=== PATIENT | female | born 1965 | race Caucasian/White ===

== ENCOUNTER 2016-07-30 07:10 | Observation (INO) | payer OTHER ==
[2016-07-30] MEDS ORDERED: ONDANSETRON 4 MG/2 ML VIAL IVP PRN (13:16)
--- NOTE | 2016-07-30 13:25 | CPEKG ---
Heart Rate: 50 RR Interval: 1200 P-R Interval: 124 QRSD Interval: 78 QT Interval: 456 QTC Interval: 416 P [place]: 23 QRS [place]: 49 T Wave [place]: 61 EKG Severity - OTHERWISE NORMAL ECG - EKG Impression: SINUS RHYTHM EKG Impression: LOW VOLTAGE IN FRONTAL LEADS Electronically Signed By: Jake Sanchez 30-Jul-2016 14:24:08
[2016-07-30 14:34] LABS: ANION GAP 9 mEq/L (8-16); CALCIUM 8.5 mg/dL (8.5-10.4); CARBON DIOXIDE 23 mEq/l (22-31); CHLORIDE 110 mEq/L (97-110); CREATININE 0.8 mg/dL (0.6-1.0); GLOMERULAR FILTRATION RATE > 60; GLUCOSE 105 mg/dL (70-100); SODIUM 142 mEq/L (134-144)
--- NOTE | 2016-07-30 16:45 | EPPROC ---
Electrophysiology Procedure Note: ELECTROPHYSIOLOGIC STUDY AND CATHETER MEDIATED ABLATION FOR SUBEUSTACHIAN ISTHMUS DEPENDENT COUNTERCLOCKWISE ATRIAL FLUTTER: INDICATION: Narrow complex tachycardia documented at 150 bpm PROCEDURES PERFORMED: 37562-49 EP evaluation with RA/RV/LA pace/record, with arrhythmia induction 62948-15 EP evaluation with RA/RV pace record, insert/reposition catheter, with arrhythmia induction 99600 SVT ablation 81076 3D mapping Fluoroscopy Catheters & Anesthesia: The patient arrived in the Electrophysiology Laboratory in the fasting state. The right clavicular region, right groin, and left groin area were prepped and draped in the usual sterile manner. Anesthesiologist administered general anesthesia. Appropriate non-invasive blood pressure, pulse oximetry and end- tidal CO2 monitoring was established. L femoral vein was easily accessed but we could not pass wire into the IVC. 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 prior history of DVT. All catheters were placed percutaneously using the modified Seldinger technique , and advanced into position under fluoroscopic guidance. One #7 Venezuelan deflectable octapolar electrode catheter was advanced to the His-bundle position via the right femoral vein (2mm spacing; except the proximal ring which was 25cm from the tip used for unipolar recordings). One #7 Venezuelan deflectable catheter with 10 pairs of electrodes was placed via the right femoral vein into the coronary sinus. One # 7 [place]an Halo catheter was inserted through the right femoral vein and was placed at the tricuspid annulus. Heparin was administered to keep ACT > 220 seconds. Programmed stimulation was performed from the right atrium, coronary sinus ( left atrium) and right ventricle. Parahisian pacing demonstrated all retrograde conduction over the AV node. On arrival to the Electrophysiology Laboratory the patient was in sinus rhythm. Programmed stimulation at baseline and with isoproterenol did not induce any SVT. 1 episode of nonsustained atrial flutter was induced. Given that the patient has symptomatic SVT at 150 bpm documented, and based on prior discussion with patient, we opted to perform ablation for atrial flutter. In preparation for ablation of typical atrial flutter, a high-resolution 3D (3 dimensional) Carto electroanatomical map of the sub-Eustachian isthmus and right atrium was obtained during pacing of the posterolateral coronary sinus. For ablation of typical atrial flutter, one #8.5 Venezuelan SR0 sheath was placed in the right atrium. A #8 Venezuelan deflectable quadrapolar electrode catheter ( 2mm-5mm-2mm spacing) with 3.5 mm irrigated tip electrode and location sensor for the Kyte mapping system was inserted in the long sheath and advanced to the right atrium. 8mm RF catheter was also used. Radiofrequency applications were applied between the tricuspid annulus at 0630 oclock as seen in the NIUEAN view and the inferior vena cava. This achieved conduction block across the isthmus. Following ablation of the atrial flutter, programmed atrial stimulation was performed in the baseline state and during infusion of isoproterenol 2 mcg/min. No atrial arrhythmias were inducible post ablation. Post ablation, a high-resolution electroanatomical map of the sub-Eustachian isthmus was obtained during pacing of the posterolateral coronary sinus. This confirmed conduction block across the sub-Eustachian isthmus. Bidirectional block was also confirmed by pacing. The catheters were removed. Long sheath was changed to short 9Fr sheath. Protamine was administered. The patient was transferred to the cardiovascular holding area in stable condition. Vascular access sheaths were removed in the holding area. There were no apparent complications. Results: A. Spontaneous Intervals: Pre ablation SCL 730 ms AH 55 ms HV 40 ms Post ablation SCL 640 ms AH 65 ms HV 40 ms B. Antegrade AV chong function (decremental pacing) Pre ablation FPERP 340 ms WBB CL 330 ms Post ablation FPERP 340 ms WBB CL 330 ms C. Retrograde AV chong function (decremental pacing) FPERP 450 ms WBB CL 440 ms CONCLUSIONS: 1. Successful catheter mediated ablation of cavotricuspid isthmus achieving bi -directional conduction block across cavotricuspid isthmus. 2. No atrial arrhythmias inducible post ablation. 3. No apparent complications. Patient Problems: Problems Problem Status Onset 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
[2016-07-30] MEDS: ACETAMINOPHEN 325 MG TAB PO PRN (17:45)
[2016-07-30] MEDS ORDERED: NS 1,000 ML IV ONE (21:30)
[2016-07-31 04:29] LABS: % IMMATURE GRANULYOCYTES 0.4 % (0.0-1.1); ABSOLUTE IMMATURE GRANULOCYTES 0.04 10^3/uL (0.00-0.10); ADD DIFF? NO; ADD MORPH? NO; ADD SCAN? NO; ATYPICAL LYMPHOCYTE FLAG 0 (0-99); FRAGMENT RBC FLAG 0 (0-99); HEMATOCRIT 38.5 % (38.0-47.0); LEFT SHIFT FLG 0 (0-99); LIPEMIA HEMOLYSIS FLAG 90 (0-99); MEAN CELL HEMOGLOBIN 29.8 pg (27.9-34.1); MEAN CELL HEMOGLOBIN CONCENTR. 33.8 g/dL (32.4-36.7); MEAN CELL VOLUME 88.3 fL (81.5-99.8); MEAN PLATELET VOLUME 9.6 fL (8.7-11.7); PLATELET CLUMPS FLAG 0 (0-99); PLATELET COUNT 193 10^3/uL (150-400); RED BLOOD CELL COUNT 4.36 10^6/uL (4.18-5.33); RED CELL DISTRIBUTION WIDTH 12.6 % (11.5-15.2)
[2016-07-31 04:38] LABS: INR 1.1 (0.83-1.16); PROTIME(PATIENT) 14.1 SEC (12.0-15.0)
[2016-07-31 04:58] LABS: ANION GAP 8 mEq/L (8-16); CALCIUM 9.1 mg/dL (8.5-10.4); CARBON DIOXIDE 23 mEq/l (22-31); CHLORIDE 109 mEq/L (97-110); CREATININE 0.7 mg/dL (0.6-1.0); GLOMERULAR FILTRATION RATE > 60; GLUCOSE 121 mg/dL (70-100); POTASSIUM 4.6 mEq/L (3.5-5.2); SODIUM 140 mEq/L (134-144)
[2016-07-31 05:00] LABS: CREATINE KINASE-MB FRACTION 1.62 ng/mL (0-3.19); TROPONIN I 0.464 ng/mL (0-0.034)
[2016-07-31] MEDS: ACETAMINOPHEN 325 MG TAB PO PRN (08:45)
--- NOTE | 2016-07-31 08:56 | CPEKG ---
Heart Rate: 56 RR Interval: 1071 P-R Interval: 152 QRSD Interval: 78 QT Interval: 404 QTC Interval: 390 P [place]: 67 QRS [place]: 37 T Wave [place]: 57 EKG Severity - NORMAL ECG - EKG Impression: SINUS RHYTHM Electronically Signed By: Jake Sanchez 31-Jul-2016 09:42:13
[2016-07-31] MEDS ORDERED: ASPIRIN 81 MG CHEWABLE TAB PO SCH (09:00)
[2016-07-31] MEDS ORDERED: APIXABAN 5 MG TAB PO SCH (09:30)
[2016-07-31 11:18] VITALS: BP 99/63; PULSE 48; RESP 15; TEMP 97.8; O2SAT 96
--- NOTE | 2016-07-31 20:52 | GDS ---
[f rep st] DISCHARGE SUMMARY ADMITTING DIAGNOSES: 1. Supraventricular tachycardia. 2. Prior cerebrovascular accident due to embolism of left posterior cerebral artery. BRIEF HISTORY: This is a 51-year-old woman with a history of non-Hodgkin lymphoma that is in remission, history of DVT, CVA, and SVT, noted on LINQ monitor, up to 150 beats per minute. SVT was associated with lightheadedness and palpitations. HOSPITAL COURSE: Dr. Rothman performed EP study and induced, nonsustained atrial flutter. An ablation of the cavotricuspid isthmus achieving bidirectional block was done. There were no other atrial arrhythmias seen. She has done well overnight, without any bleeding from her groin site. She did have an area of redness on her left upper thigh this morning. This did resolve shortly after she stood up. No swelling or pain in her leg. Because of the atrial flutter, although it was nonsustained, and her history of stroke, Dr. Rothman has recommended starting Eliquis, and she was given a prescription for 5 mg p.o. b.i.d. She will stop her Plavix. She has a LINQ monitor, and if no atrial arrhythmias are seen over the next 6 months, we will plan to stop the Eliquis and restart Plavix. She is in agreement with this plan. LAB WORK: WBC 10.69, hemoglobin 13, hematocrit 38.5, platelets 193. Sodium is 140, potassium 4.6, chloride 109, bicarbonate 23, BUN 14, creatinine 0.7, glucose is 121, CK 71, CK MB is 1.62, troponin is 0.464, which is elevated and to be expected post ablation. INR is 1.1. PT is 14.1. Echocardiogram was done. Preliminary report, per Dr. Rothman, demonstrates no effusion, however, the report is not yet dictated. PHYSICAL EXAMINATION: VITAL SIGNS: Blood pressure is 97/56, pulse 86, respirations 18, temperature 36.8, O2 saturation is 97% on room air. GENERAL: She is alert and oriented, sitting up in bed, in no acute distress. CARDIAC: Regular rate and rhythm without murmur, rub or gallop. LUNGS: Clear to auscultation. ABDOMEN: Groin sites without ecchymosis or hematoma. LEGS: Without discoloration. No swelling. Currently, no redness or tenderness. Left DP is by Doppler. Left PT is +2. Right pedal pulses are +2. DISCHARGE INSTRUCTIONS: Activity restrictions were reviewed, including no lifting over 10 pounds for 1 week. No straining. Hold pressure over groin site with coughing or sneezing for the next few days, and no sitting in bathtub or hot tube for the next week. FOLLOWUP: She has a followup with Dr. Rothman on August 28 at 3:30. /[id number]/MODL MTDD
== END 2016-07-31 12:14 | disposition home or self-care (01) ==
LOC: FCATH 07:10 → F2W 13:40
PROVIDERS: ADMIT Internal Medicine Cardiovascular Disease; ATTEND Internal Medicine Cardiovascular Disease
PROC: 5A1213Z Performance of Cardiac Pacing, Intermittent (ICD-10-PCS; principal; 2016-07-30)
PROC: 02583ZZ Destruction of Conduction Mechanism, Percutaneous Approach (ICD-10-PCS; principal; 2016-07-30)
PROC: 4A023FZ Measurement of Cardiac Rhythm, Percutaneous Approach (ICD-10-PCS; principal; 2016-07-30)
DX: I47.1 Supraventricular tachycardia (principal); I48.92 Unspecified atrial flutter; Z86.73 Personal history of transient ischemic attack (TIA), and cerebral infarction without residual deficits; Z86.718 Personal history of other venous thrombosis and embolism; Z85.72 Personal history of non-Hodgkin lymphomas
CPT/HCPCS: 93005; 93306; G0378; J2405

== ENCOUNTER → 2017-02-27 | Outpatient (CLI) | payer OTHER | LOC: BMCIMAGING 09:03 | PROVIDERS: ATTEND Obstetrics & Gynecology | DX: Z12.31 Encounter for screening mammogram for malignant neoplasm of breast (principal) ==

== ENCOUNTER → 2017-12-05 | Outpatient (CLI) | payer OTHER | LOC: FIMAGING 15:48 | PROVIDERS: ATTEND Internal Medicine | DX: M79.652 Pain in left thigh (principal); M25.552 Pain in left hip; Q65.89 Other specified congenital deformities of hip ==

== ENCOUNTER 2018-05-21 05:46 | Observation (INO) | payer OTHER ==
[2018-05-21] MEDS ORDERED: VANCOMYCIN IV ONE (06:00)
[2018-05-21] MEDS ORDERED: ROPI/epINEPH/KETOROLAC/morphINE IU ONE (06:00)
[2018-05-21] MEDS ORDERED: NS IV ONE (06:00)
[2018-05-21] MEDS ORDERED: FAMOTIDINE 20 MG TAB PO ONE (06:03)
[2018-05-21] MEDS ORDERED: ACETAMINOPHEN 325 MG TAB PO ONE (06:03)
[2018-05-21] MEDS ORDERED: LR 1,000 ML IV ONE (06:04)
[2018-05-21] MEDS ORDERED: ROPIVACAINE IU ONE (06:22)
[2018-05-21] MEDS ORDERED: VANCOMYCIN PHARMACY TO DOSE MISC ONE (06:22)
[2018-05-21] MEDS ORDERED: KETOROLAC TROMETHAMINE IU ONE (06:22)
[2018-05-21] MEDS ORDERED: MORPHINE IU ONE (06:22)
--- NOTE | 2018-05-21 06:42 | PDANEPAE ---
ANE Past Medical History - Cardiovascular History Hx Hypertension: No Hx Arrhythmias: Yes Hx Chest Pain: No Hx Coronary Artery / Peripheral Vascular Disease: No Hx CHF / Valvular Disease: No Hx Palpitations: No Cardiovascular History Comment: ABLATION 2015. LOOP RECORDER IN SITU - Pulmonary History Hx COPD: No Hx Asthma/Reactive Airway Disease: No Hx Recent Upper Respiratory Infection: No Hx Oxygen in Use at Home: No Hx Sleep Apnea: No Sleep Apnea Screening Result - Last Documented: Negative - Neurologic History Hx Cerebrovascular Accident: Yes Hx Seizures: No Hx Dementia: No Neurologic History Comment: CVA 2016 R SIDE MILD DEFICIT & MILD SPEECH DEFICIT. PLACED LOOP RECORDER/HAS PLANS. TO BE REMOVED AFTER SURGERY 05/21/18 - Endocrine History Hx Diabetes: No Hypothyroid: No Hyperthyroid: No Obesity: no - Renal History Hx Renal Disorders: No - Liver History Hx Hepatic Disorders: No - Neurological & Psychiatric Hx Hx Neurological and Psychiatric Disorders: No - Cancer History Hx Cancer: Yes Cancer History Comment: NON HODGKINS LYMPHOMA 2014 - Congenital Disorder History Hx Congenital Disorders: No - GI History GERD: no Hx Gastrointestinal Disorders: No - Other Health History Other Health History: LT HIP UNABLE TO USE LEG WALKS WITH A LIMP. LT LEG DVT 2015 - Chronic Pain History Chronic Pain: No - Surgical History Prior Surgeries: KAYLIN SHLDR SCOPE. KAYLIN KNEE SCOPES. LT BIG TOE RECONSTRUCTION. REMVL LYMPH NODE RT GROIN FOR CA. RT HAND ORIF WITH POST HARDWARE REMVL. LT WRIST REMVL CYST/LIGAMENT REPAIR. LT ELBOW ULNAR NERVE ANE Review of Systems Review of Systems: - Exercise capacity Exercise capacity: limited by disability METS (RN): 4 METS ANE Patient History - Allergies Allergies/Adverse Reactions: adhesive tape Allergy (Verified 01/01/16 09:07) Rash latex Allergy (Verified 05/07/18 10:45) RASH/ITCH Penicillins Allergy (Verified 05/07/18 10:45) Anaphylaxis - Home Medications Home Medications: Herbals/Supplements -Info Only 1 ea PO DAILY 07/30/16 [Last Taken 05/20/18 07:00 ] Pradaxa 150 MG (*) DAILY 05/07/18 [Last Taken 05/18/18 19:00] VITAMIN E DAILY 05/07/18 [Last Taken 05/13/18 07:00] Zoloft 100mg (*) DAILY 05/07/18 [Last Taken 05/21/18 0500] - Anes Hx Anes Hx: post operative nausea and vomiting - Smoking Hx Smoking Status: Former smoker - Alcohol Use Alcohol Use: Occasionally - Family Anes Hx Family Anes Hx: neg - N/A ANE Labs/Vital Signs - Vital Signs Height: 175.26 cm Weight: 77.111 kg ANE Physical Exam - Airway Neck exam: FROM Mallampati Score: Class 2 Mouth exam: normal dental/mouth exam - Pulmonary Pulmonary: no respiratory distress, no rales or rhonchi, clear to auscultation - Cardiovascular Cardiovascular: regular rate and rhythym, no murmur, rub, or gallop - ASA Status ASA Status: III ANE Anesthesia Plan Anesthesia Plan: general endotracheal anesthesia Total IV Anesthesia: No
[2018-05-21] MEDS ORDERED: BUPIVACAINE/EPI 0.5% 30 ML SDV ONE (06:47)
--- NOTE | 2018-05-21 06:56 | PDHPUP ---
History & Physical Update H&P update statement: This history and physical update is based on an assessment of the patient which was completed after admission or registration (within 24 hours), but prior to the surgery/procedure. H&P update: H&P reviewed & patient examined, no change in patient's condition since H&P completed
[2018-05-21] MEDS ORDERED: MIDAZOLAM 2 MG/2 ML VIAL IVP ONE (06:59)
[2018-05-21] MEDS ORDERED: PROPOFOL/EMULSION 500 MG/50 ML BOTTLE IV ONE ×2 (07:11→09:51)
[2018-05-21] MEDS ORDERED: fentaNYL 100 MCG/2 ML INJ ONE ×2 (07:11→10:23)
[2018-05-21] MEDS ORDERED: PROPOFOL 200 MG/20 ML VIAL ONE (07:11)
[2018-05-21] MEDS ORDERED: ONDANSETRON 4 MG/2 ML VIAL ONE ×2 (07:17→07:25)
[2018-05-21] MEDS ORDERED: DEXAMETHASONE 4 MG/ML VIAL ONE (07:17)
[2018-05-21] MEDS ORDERED: ROCURONIUM 100 MG/10 ML VIAL ONE (07:17)
[2018-05-21] MEDS ORDERED: LIDOCAINE 2% 2 ML INJ ONE ×2 (07:20→07:27)
[2018-05-21] MEDS ORDERED: MIDAZOLAM 2 MG/2 ML VIAL ONE (07:24)
[2018-05-21] MEDS ORDERED: REMIFENTANIL HCL 1 MG VIAL ONE ×2 (07:43→09:51)
[2018-05-21] MEDS ORDERED: PROMETHAZINE HCL 25 MG/ML INJ IVP PRN (07:53)
[2018-05-21] MEDS ORDERED: LR 500 ML IV PRN (07:53)
[2018-05-21] MEDS ORDERED: HYDROmorphONE/DILAUDID 2 MG/ML INJ IVP PRN (07:53)
[2018-05-21] MEDS ORDERED: oxyCODONE IR 5 MG TAB PO PRN (07:53)
[2018-05-21] MEDS ORDERED: PHENYLEPHRINE HCL 100 MCG/ML SYR IVP PRN (07:53)
[2018-05-21] MEDS ORDERED: NALOXONE HCL 0.4 MG/ML INJ IVP PRN (07:53)
[2018-05-21] MEDS ORDERED: ACETAMINOPHEN 500 MG TAB PO PRN (07:53)
[2018-05-21] MEDS ORDERED: ONDANSETRON 4 MG/2 ML VIAL IVP PRN ×2 (07:53→10:44)
[2018-05-21] MEDS ORDERED: HYDROCODONE/APAP 5/325 TAB PO PRN (07:53)
[2018-05-21] MEDS ORDERED: fentaNYL 100 MCG/2 ML INJ IVP PRN (07:53)
[2018-05-21] MEDS ORDERED: ePHEDrine SULFATE 25 MG/5 ML SYR ONE (07:56)
[2018-05-21] MEDS ORDERED: PHENYLEPHRINE HCL 100 MCG/ML SYR ONE (08:27)
[2018-05-21] MEDS ORDERED: NEOSTIGMINE METHYLSULFATE 5 MG/5 ML SYR ONE (10:18)
[2018-05-21] MEDS ORDERED: GLYCOPYRROLATE 0.2 MG/1 ML VIAL ONE ×4 (10:18→10:20)
[2018-05-21] MEDS ORDERED: HYDROmorphONE/DILAUDID 2 MG/ML INJ ONE (10:43)
[2018-05-21] MEDS ORDERED: MEPERIDINE 25 MG/0.5 ML AMP IVP PRN (10:55)
--- NOTE | 2018-05-21 10:55 | POSTANESTH ---
Post Anesthetic Evaluation Cardiovascular Status: Normal, Stable Respiratory Status: Normal, Stable Level of Consciousness/Mental Status: Can Participate in Eval Pain Control: Adequate, Prn Tx Ordered Nausea/Vomiting Control: Adequate, Prn Tx Ordered Complications Possibly Related to Anesthesia: None Noted
[2018-05-21] MEDS ORDERED: MEPERIDINE 25 MG/0.5 ML AMP ONE (11:09)
[2018-05-21] MEDS: oxyCODONE IR 5 MG TAB PO PRN ×4 (12:39→21:48)
[2018-05-21] MEDS: ACETAMINOPHEN 325 MG TAB PO PRN (12:40)
--- NOTE | 2018-05-21 18:50 | GOP ---
[f rep st] OPERATIVE REPORT DATE OF OPERATION: 05/21/2018 SURGEON: Nathaniel Ureña MD ALIGNER: HIMANSHU CordovaA, LSA. Roller Skater was required for the procedure due to complexity of the case, patient's condition for positioning, prepping, draping, draping, driving the arthroscope, manipulation of instruments and closure. ANESTHESIA: General endotracheal anesthesia. PREOPERATIVE DIAGNOSIS: Left hip labral tear, pincer, cam alpha angle greater than 60 degrees and trochanteric bursitis. POSTOPERATIVE DIAGNOSIS: Left hip labral tear, pincer, cam alpha angle greater than 60 degrees and trochanteric bursitis, but also includes notch osteophyte. PROCEDURE PERFORMED: Left hip arthroscopy with labral repairs and independent procedure not secondary to acetabuloplasty, anterior acetabuloplasty from 1-3 of 2 mm, femoroplasty in the peripheral compartment, capsular repair, trochanteric bursectomy and notchplasty of the cotyloid fossa, and fluoroscopic supervision greater than 1 hour. FINDINGS: Diagnostic arthroscopy reveals Seldes type 1 tear of the labrum extending from 1 to 3 o'clock. The tear was felt to be reparable and treated with repair. She had a grade 1 ALAD Outerbridge 1 lesion comprising 0.5 square cm of cartilage of the acetabulum in the anterior superior zone. The remainder of the cartilage in the weightbearing areas in the femur and acetabulum were intact. There was a pincer morphology anteriorly. Ligamentum teres was graded dome 1 volar 3 with partial degenerative-type tearing. There was also a small osteophyte in the superior most aspect of the cotyloid fossa and mild inflammation within the fossa. In the trochanteric space, there was significant trochanteric bursitis. SPECIMENS: None. ESTIMATED BLOOD LOSS: 30 cc. INDICATIONS: Patient has moderate to severe pain worsened by flexion, joint motion, impingement test for more than 3 months. The patient has had significantly limited activities of daily living such as walking, getting into and out of the car, squatting and picking up an object, putting on shoes and socks. The pain had been unresponsive to more than 3 months of conservative treatment including activity modification, points of symptomatic motions, restriction of athletics, medications, physical therapy. Clinically, the patient has positive impingement sign which was reproduced with the pain. She had no evidence of hip instability radiographically. There was no evidence of arthritis. The hip was grade 2 and 0. She had intact joint space. There was no suspicion of outer bridge grade 3 or 4 cartilage damage. MRI demonstrated a labral tear. The patient was not indicated for hip replacement given the preoperative diagnostic imaging. Diagnostic injection gave temporary relief confirming proceed. The patient was not indicated for total hip replacement given the preoperative diagnostic imaging. Given the failure to improve with conservative measures, the patient elected to proceed with arthroscopic treatment. The patient verbalized understanding of the risks and benefits of the procedure and signed informed consent prior to the procedure. DESCRIPTION OF PROCEDURE: The patient was seen in the holding area, and the operative site was signed. The patient was taken to the operating room and after smooth induction of general anesthesia, she was placed in the supine position on a Maldonado and nephew traction table with well-padded perineal post. Genitalia were protected and the feet were secured. The hip was prepped and draped in the usual sterile fashion. Operative site was confirmed by signature , time-out performed. Allergies reviewed. Antibiotics were administered. Traction was applied to the hip under fluoroscopy. Anterolateral portal was created with an 11 blade. Spinal needle was introduced into the joint under fluoroscopy, and the joint was vented achieving further distention. Spinal needle was withdrawn and reinserted to ensure avoidance of the labrum and the femoral head. Iryv-maz-acwgevwhn technique was used to place a 70-degree arthroscope through the 4.5 mm cannula. The same [id number]-[id number]-lugzngogw technique was used to place a 5 mm cannula through the mid anterior portal. Capsulotomy: Nichole Samurai blade was used to perform a capsular release incising the capsule parallel to the acetabular rim to connect both portals. Further joint mobilization was achieved in this fashion. Diagnostic arthroscopy was then performed. Portals were switched frequently during this and all other parts of the procedure to access all parts of the joint. All parts of the joint were examined and probed including the entire labrum, cartilage in the femur and acetabulum, ligamentum teres and acetabular fossa. The pincer lesion which was probed under fluoroscopy was used to define the extent of the overhang. Acetabuloplasty was then undertaken. Capsule was elevated from the pincer lesion using the ablator RF wand, and a 5.5 mm bur was used to perform the acetabular rim trimming. A maximum of 2 mm was trimmed. This was carried out between 1 and 3 o'clock using fluoroscopic visualization to eliminate any crossover sign fluoroscopically to the pretemplated amount of bone from the impingement part of the rim. Notchplasty: Osteoplasty of the notch osteophyte was performed through the mid anterior portal with a 5.5 mm bur, removing abnormal bone spur up to the border of normal cartilage. Labral repair with stitch technique: The labral repair was then undertaken. Using a loop stitch technique a total of 2 stitches and anchors were placed. Excellent refixation of the labrum was achieved in this fashion. The labral repair was an independent procedure not secondary to the acetabuloplasty and would have been necessary without the labral tear. Femoroplasty: The damaged cartilage overlying the head neck junction was removed with radiofrequency ablation. Femoroplasty was performed using 5.5 mm bur. This was done with extensive fluoroscopic visualization. The hip was moved between 0 and 90 degrees of flexion in between internal and external rotation. The fluoroscope was also used as necessary so that simultaneous arthroscopic and fluoroscopic views were obtained at all times. In this manner , appropriate head and neck offset and spherical contour were created. The femoroplasty surface was then polished using the bur on reverse mode. Dynamic impingement test was performed taking out the hip to 110 degrees of flexion, maximal internal rotation, abduction . No impingement remained. Capsular repair: The capsular repair was undertaken. Disposable cannula was placed in the mid anterior portal, and the Slingshot suture device was used to penetrate the proximal limb of the capsule with #2 Vicryl. Slingshot was then used in the DALA portal and used to penetrate the distal limb of the capsule, retrieving the suture from the proximal aspect. This was then tied on the outside of the capsule with standard arthroscopic knot-tying technique. This was repeated for a total 2 stitches. Excellent plication of the capsule was achieved. Plan was made for the patient to be protected from external rotation or extension for the first 2 weeks surgery to protect the repair. Trochanteric bursectomy/debridement: The blunt obturator was used to reinsert the arthroscope into the peritrochanteric compartment through the mid anterior portal. The shaver was introduced through the anterolateral portal. The trochanteric bursectomy and debridement were performed. The entire trochanteric space was examined including gluteus medius and deacon insertions. The joint was lavaged and sucked dry of all fluid. All instruments were withdrawn from the joint. Portals were closed with 3-0 Monocryl. Steri-Strips and sterile dressings were applied to the hip, and the hip was placed in a brace locked from 0-90 degrees of flexion. The patient was safely awakened, extubated and taken to the recovery room in stable condition. DRAINS: None COMPLICATIONS: None. IMPLANTS: Includes Arthrex 3.0 mm knotless suture tack anchors x2 with #2 FiberWire sutures. TRACTION TIME: Less than 60 minutes. POSTOPERATIVE INSTRUCTIONS: Two weeks of crutches with 20-pound weightbearing on the operative extremity. Brace for postoperative stability to be worn for 2 weeks. Physical therapy to begin as early as the day after surgery following all 4 phases of the protocol. Stationary bike to begin the day after surgery for a total of 8 weeks. All critical portions of procedure were performed by myself, Dr. Ureña. This operative note was created by myself, and I was immediately available for emergency cross-coverage at all times. /[id number]/MODL MTDD
[2018-05-21] MEDS: PANTOPRAZOLE SODIUM 40 MG TAB PO SCH (21:48)
[2018-05-21] MEDS: NAPROXEN SODIUM 220 MG TAB PO SCH (21:48)
[2018-05-22] MEDS: oxyCODONE IR 5 MG TAB PO PRN ×6 (03:30→23:11)
--- NOTE | 2018-05-22 07:40 | SOAPPROG ---
[facility] Progress Note Assessment/Plan: Assessment: 53-year-old female status post left hip arthroscopy with labral repair femoroplasty acetabuloplasty notchplasty capsular repair and trochanteric bursectomy Plan: 20 lb foot flat weight-bearing restriction with crutches and hip abduction brace Physical therapy to begin as soon as 1 day postoperatively Discharge instructions and extensive physical therapy protocol given to patient Begin Pradaxa this morning for DVT prophylaxis given history of DVT and stroke [place] as needed for pain, Naprosyn twice daily for 6 weeks for heterotopic ossification prophylaxis Follow-up in 2 weeks Disposition: Home today after PT 05/22/18 07:37 Subjective: No acute events. Pain slightly increased today compared to yesterday. Denies fevers chills nausea vomiting chest pain shortness of breath numbness or tingling. Objective: Vital Signs Temp Pulse Resp BP Pulse Ox 36.8 C 66 17 89/54 L 96 05/22/18 04:00 05/22/18 04:00 05/22/18 04:00 05/22/18 04:00 05/22/18 04:00 05/21/18 05/22/18 05/23/18 05:59 05:59 05:59 Intake Total 2400 Output Total 650 Balance 1750 Awake alert and oriented Easy nonlabored breathing Left hip: Dressing clean dry intact no erythema drainage or signs of infection Thigh and calf compartments soft and compressible Sensation intact to light touch L3-S1 Motor intact EHL FHL tibialis anterior gastrocsoleus Palpable DP PT pulses - Pending Discharge Pending Discharge Within 24 Hours: Yes Pending Discharge Date: 05/22/18 Pending Discharge Time: 11:00 ICD10 Worksheet Patient Problems: Problems Problem Status Onset Articular cartilage disorder of left hip Acute 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
[2018-05-22] MEDS: NAPROXEN SODIUM 220 MG TAB PO SCH ×2 (08:58→19:45)
[2018-05-22] MEDS: DABIGATRAN ETEXILATE MESYL 150 MG CAP PO SCH ×2 (08:59→19:45)
[2018-05-22] MEDS: PANTOPRAZOLE SODIUM 40 MG TAB PO SCH ×2 (08:59→19:46)
[2018-05-22] MEDS: ATORVASTATIN CALCIUM 40 MG TAB PO SCH (08:59)
[2018-05-22] MEDS ORDERED: ATORVASTATIN CALCIUM 20 MG TAB PO SCH (09:00)
[2018-05-22] MEDS ORDERED: NS 1,000 ML IV ONE ×2 (09:30→12:00)
--- NOTE | 2018-05-22 09:36 | ASMTLACE ---
[facility] Length of stay for Answers: Less than 1 day current admission Acuity / Level of Answers: No Care: Did the patient have an inpatient admission? Comorbidities - select Answers: Any tumor (including all that apply lymphoma or leukemia) Cerebrovascular disease (CVA, TIA, aneurysms, vasc ular dementia) # of Emergency department Answers: 0 visits in the last 6 months Score: 3 Date Signed: 05/22/2018 09:34 AM Electronically Signed By:MARIA VICTORIA Coy
[2018-05-22] MEDS: ACETAMINOPHEN 325 MG TAB PO PRN ×2 (10:24→14:34)
[2018-05-22 12:36] LABS: PLATELET COUNT 173 10^3/uL (150-400)
[2018-05-22] MEDS: SERTRALINE HCL 100 MG TAB PO SCH (14:29)
[2018-05-22] MEDS: NS 1,000 ML IV SCH ×2 (14:29→23:49)
--- NOTE | 2018-05-22 14:48 | GCON ---
[f rep st] CONSULTATION CARDIOLOGY CONSULTATION REFERRING PHYSICIAN: Nathaniel Ureña MD INDICATION FOR CARDIOLOGY CONSULTATION: Episode of bradycardia and hypotension postoperatively. HISTORY OF PRESENT ILLNESS: The patient is a 53-year-old female, who is known to our practice. She is followed by Dr. Deann Allen. She has significant past history that includes non-Hodgkin lymphoma treated with R-CHOP therapy and radiation to the right groin. Also known to have a left MCA stroke in 2016 and a previous history of atrial flutter with ablation in July 2016. She has had a LINQ monitor that has shown short episodes of paroxysmal atrial fibrillation. She is also on chronic anticoagulation with Pradaxa. She also has known history of hyperlipidemia. She was admitted 05/21/2018 for elective surgery for a left labral tear. Dr. Ureña performed repair, left hip arthroscopic, with no significant complications. Postoperatively, she was placed on 3 North for recovery. She has been noted since her admission to be hypotensive, with systolics as low as 84 mmHg. Per the nursing staff, she has also been noted to have heart rates noted to be down into the low 50s. She does report with this, she has been noted to be mildly lightheaded, but denies any near syncope or syncopal events. She reports no history of chest pain or pressure. Denies any shortness of breath. She did receive 2 L of normal saline IV fluid, with mild improvement in blood pressure and symptoms. She denies any orthopnea, PND, edema, near syncope, or syncopal events. Reports no symptoms suggesting recurrence of TIA or CVA. She has been resumed on her home dose of Pradaxa. Denying any postoperative bleeding issues. PAST MEDICAL HISTORY: The patient's past medical history includes paroxysmal atrial fibrillation, previous atrial flutter , CVA, left MCA, previous DVT, non- Hodgkin lymphoma, and history of PSVT, hyperlipidemia. PAST SURGICAL HISTORY: Previous atrial flutter ablation in July 2016. Hand surgery. FAMILY HISTORY: Noncontributory. SOCIAL HISTORY: She is single. She is a manager financial systems. She was a former smoker. She occasionally uses EtOH, one daily. Denies any illicit drug use. ALLERGIES: Adhesive tape, latex, and penicillin. HOME MEDICATIONS: Omeprazole 20 mg p.o. twice daily, naproxen 500 mg p.o. twice daily, atorvastatin 40 mg p.o. daily, Zoloft 100 mg p.o. daily, and Pradaxa 150 mg p.o. twice daily. REVIEW OF SYSTEMS: A 10-point review of systems done on this patient is all negative except as mentioned above. PHYSICAL EXAMINATION: GENERAL APPEARANCE: A tall-statured, well-groomed female. She is alert and oriented to person, place, time, and situation. She appears to be under no acute distress. VITAL SIGNS: Current vital signs include a blood pressure of 98/60 via left arm, heart rate 64 with sinus rhythm on the monitor, respirations 18, saturating 99% on 2 L nasal cannula, and a temperature of 37.3 degrees Celsius. HEENT: Head is normocephalic. Lips are dry and pink with no cyanosis . NECK: Trachea is midline, +2 carotid pulses bilateral. No auscultated bruits. No jugular vein distention. RESPIRATORY: Lungs are clear to auscultation. No rhonchi, rales, or wheezes. No accessory muscle use. No intercostal muscle retraction noted. CARDIAC: Regular rate and regular rhythm. S1 and S2. No S3, S4, gallops, rubs , or murmurs noted. ABDOMEN: Soft and nontender. Bowel sounds x4 quadrants. No organomegaly. No palpable masses. SKIN: [place], warm, and dry. No cyanosis , no clubbing, and no peripheral edema. Left lateral hip dressing is clean, dry , and intact with no signs of infection. VASCULAR: +2 carotids bilateral, +2 radials bilateral, and +1 dorsal pedal and posterior tibial pulses bilateral. LABS: Laboratory studies drawn on April 27, 2018, showed WBC of 7.02, hemoglobin 13.1, hematocrit 39.8, and platelet count 211. Sodium 138, potassium 4.4, chloride 106, CO2 of 27, BUN 13, creatinine 0.8, and glucose 97. Calcium 9.1, total bilirubin 0.3, AST 37, ALT 25, alkaline phosphatase 65, total protein 6.5, and albumin 3.8. Laboratory studies drawn today showing WBC of 7.86, hemoglobin 11.9, hematocrit 37.7, and platelet count 173. Sodium 142, potassium 5.0, chloride 109, CO2 of 29, BUN 14, creatinine 0.7, glucose 98, and calcium 8.7. STUDIES: Electrocardiogram done today showing sinus rhythm, low voltage in limb leads, normal axis, and no significant ST-T wave abnormalities. Recent echocardiogram done at [facility] dated April 30, 2018, showing normal LV systolic function with an ejection fraction estimated at 65%, with no wall motion abnormalities and normal diastolic function. Normal RV size with RV systolic function. Both atria are of normal size. No significant mitral valve disease. No significant aortic valve disease. Trivial TR. Pulmonary valve is not well visualized. Ascending aorta measuring at 3.2 cm. ASSESSMENT AND PLAN: 1. Hypotension: The patient has been noted to be hypotensive with systolic blood pressures in the 80s, improvement with intravenous fluid. She has no significant jugular vein distention. She is noted to have normal left ventricular systolic function with no wall motion abnormalities. Laboratory studies today show mild anemia (expected postoperative), with normal electrolyte and renal function. She has also been getting narcotics due to recent surgery. I do think potentially her lower blood pressures are a combination of dehydration due to preoperative n.p.o. status, no significant oral intake postoperative, and narcotic and pain medication usage. I have recommended that we continue her on intravenous fluids, which I have ordered her to have normal saline at 100 mL an hour. She has also been encouraged oral intake of fluid. We will repeat a basic metabolic panel in the morning. 2. Reported episode of bradycardia: Reviewing continuous cardiac monitoring, it does show that her heart rate does go down to the 50s, but this is sinus rhythm. No other malignant arrhythmias or pauses have been noted. Electrocardiogram shows no ischemic changes. Currently, heart rate is in the 60s and sinus. We will continue to monitor her on continuous cardiac monitoring overnight for further evaluation. 3. History of atrial flutter/atrial fibrillation: Remote history of ablation. She has been noted on previous LINQ interrogation to have brief episodes of atrial fibrillation, none noted during this hospitalization. She is currently on no atrioventricular chong agents. She has been resumed on her home dose of Pradaxa, due to her significantly elevated CHADS-VASc score with previous cerebrovascular accident. 4. Hyperlipidemia: Patient noted with a history of hyperlipidemia. She has been restarted on her home dose of atorvastatin. Will have her get a fasting lipid panel in a.m.. 5. History of labral tear, status post surgery for repair, with left hip arthroscopy. No signs of bleeding or infection. Defer treatment to Orthopedics. Thank you for this consultation. We will follow along with you. Due to her lower blood pressures, we will plan for her to stay for one more night for further gentle intravenous hydration. /[id number]/MODL MTDD
--- NOTE | 2018-05-22 15:40 | ASMTCMCOM ---
CM Note CM Note Notes: Pt is s/p L TRISTAN. She was cleared by PT for outpt therapy. Discharge canceled today 2/2 erractic BPs. Anticipate pt will d/c home independent when medically cleared. D/C plan: home independent Date Signed: 05/22/2018 03:39 PM Electronically Signed By:MARIA VICTORIA Coy
[2018-05-23] MEDS ORDERED: HYDROCODONE/APAP 10/325 TAB PO PRN (07:16)
--- NOTE | 2018-05-23 07:19 | SOAPPROG ---
[facility] Progress Note Assessment/Plan: Assessment: 53-year-old female POD 2 left hip arthroscopy with labral repair femoroplasty acetabuloplasty notchplasty capsular repair and trochanteric bursectomy Plan: Cardiac consultation recommend only increased fluid decrease narcotic use. Blood pressure and heart rate have been stable. 20 lb foot flat weight-bearing restriction with crutches and hip abduction brace Physical therapy to begin as soon as 1 day postoperatively Discharge instructions and extensive physical therapy protocol given to patient Pradaxa for DVT prophylaxis given history of DVT and stroke Paicines as needed for pain, Naprosyn twice daily for 6 weeks for heterotopic ossification prophylaxis Follow-up in 2 weeks Disposition: Home today after PT 05/22/18 07:37 05/23/18 07:17 Subjective: No acute events. Pain relatively well controlled. Denies fevers chills nausea vomiting chest pain shortness of breath numbness or tingling. Decreased orthostasis. Objective: Vital Signs Temp Pulse Resp BP Pulse Ox 36.8 C 61 16 109/61 92 05/23/18 04:00 05/23/18 04:00 05/23/18 04:00 05/23/18 04:00 05/23/18 04:00 Laboratory Results 05/22/18 12:15 05/23/18 04:34 05/22/18 05/23/18 05/24/18 05:59 05:59 05:59 Intake Total 2400 2111 Output Total 650 1150 Balance 1750 961 Awake alert and oriented Easy nonlabored breathing Left hip: Dressing clean dry intact no erythema drainage or signs of infection Thigh and calf compartments soft and compressible Sensation intact to light touch L3-S1 Motor intact EHL FHL tibialis anterior gastrocsoleus Palpable DP PT pulses ICD10 Worksheet Patient Problems: Problems Problem Status Onset Articular cartilage disorder of left hip Acute Stroke due to embolism of left posterior cerebral artery Chronic
[2018-05-23 07:30] VITALS: BP 100/68
[2018-05-23] MEDS: NAPROXEN SODIUM 220 MG TAB PO SCH (08:08)
[2018-05-23] MEDS: DABIGATRAN ETEXILATE MESYL 150 MG CAP PO SCH (08:09)
[2018-05-23] MEDS: ATORVASTATIN CALCIUM 40 MG TAB PO SCH (08:09)
[2018-05-23] MEDS: SERTRALINE HCL 100 MG TAB PO SCH (08:09)
[2018-05-23] MEDS: PANTOPRAZOLE SODIUM 40 MG TAB PO SCH (08:09)
--- NOTE | 2018-05-23 08:32 | PDCARPN ---
Cardiology Progress Note Assessment/Plan: Assessment: -hypotension (resolved) -Bradycardia (heart rates within acceptable rates in the 50's to 60's) -hx of Paroxysmal Afib and Aflutter s/p ablation -hx of L MCA CVA on chronic anticoagulation with Pradaxa 150 mg bid (back on pradaxa) -hyperlipidemia (well controlled) Plan: -Stable for discharge home from cardiac perspective -Encourage adequate hydration -OK if she has coffee -Discussed ways to avoid orthostasis -Pt will follow up with her primary mortuary technician, Dr. Deann Allen 05/23/18 08:32 Subjective: Jamila is feeling well this AM. No dizziness, lightheadedness, near syncope. BP has improved, back to pre op levels. She recieved 2L NS over last 12 hours. Heart rates in the 50-60's. She is on no AV chong blocking meds. No complaints of palpitations. Hx of Paroxsymal Aflutter and AFib s/p ablation. She does have a hx of L. MCA CVA and is back on Pradaxa 150 mg bid. Hx of Hyperlipidemia, Lipids well controlled. I think Jamila is stable for discharge home. She has support at home. Discussed adequate hydration and gradual, deliberate change from lying to sitting to standing to avoid orthostasis. Objective: Vital Signs (8 Hrs) Temp Pulse Resp BP Pulse Ox 05/23/18 07:30 36.6 C 56 L 18 100/68 95 05/23/18 04:00 36.8 C 61 16 109/61 92 Intake/Output (24 Hrs) 05/22/18 05/23/18 05/24/18 05:59 05:59 05:59 Intake Total 2400 2111 400 Output Total 650 1150 Balance 1750 961 400 Intake: Oral (ml) 1050 1230 400 IV Intake (ml) 1350 881 Output: Urine (ml) 600 1150 Bedside Commode 600 1150 Estimated Blood Loss (ml) 50 Other: Weight 77.111 kg Intake Quantity Yes Yes Sufficient Number of Voids Bedside Commode 1 1 Result Diagrams: 05/22/18 12:15 05/23/18 04:34 - Physical Exam Neurologic: AAOx3, CN II-XII grossly intact Psychiatric: cooperative, interactive, following commands ICD10 Worksheet Patient Problems: Problems Problem Status Onset Articular cartilage disorder of left hip Acute Stroke due to embolism of left posterior cerebral artery Chronic
--- NOTE | 2018-05-23 09:11 | ASDISCHSUM ---
Discharge Information Plan Status:Home with No Needs Medically Cleared to Leave: Discharge Date: CM D/C Disposition:Home, Routine, Self-Care ADT D/C Disposition:Home, Routine, Self-Care Projected Discharge Date: Transportation at D/C:Family Discharge Delay Reason: Follow-Up Date: Discharge Slot: Final Diagnosis: Placement Information Patient Contact Information Contact Name:MIKAELA Relationship:Mother Address: Work Phone: City: Alternate Phone: State/Zip Code: Email: Financial Information Financial Class:[employer] Primary Plan Desc:[employer] Primary Plan Number:[id number] Secondary Plan Desc: Secondary Plan Number: Assessment Information LACE [facility] Length of stay for Answers: Less than 1 day current admission Acuity / Level of Answers: No Care: Did the patient have an inpatient admission? Comorbidities - select Answers: Any tumor (including all that apply lymphoma or leukemia) Cerebrovascular disease (CVA, TIA, aneurysms, vasc ular dementia) # of Emergency department Answers: 0 visits in the last 6 months Score: 3 Date Signed: 05/22/2018 09:34 AM Electronically Signed By:MARIA VICTORIA Coy [facility] Progress Note CM Note CM Note Notes: Pt is s/p L TRISTAN. She was cleared by PT for outpt therapy. Discharge canceled today 2/2 erractic BPs. Anticipate pt will d/c home independent when medically cleared. D/C plan: home independent Date Signed: 05/22/2018 03:39 PM Electronically Signed By:MARIA VICTORIA Coy LACE LACE Length of stay for Answers: 2 days current admission Acuity / Level of Answers: No Care: Did the patient have an inpatient admission? Comorbidities - select Answers: Any tumor (including all that apply lymphoma or leukemia) Cerebrovascular disease (CVA, TIA, aneurysms, vasc ular dementia) # of Emergency department Answers: 0 visits in the last 6 months Score: 5 Date Signed: 05/23/2018 09:09 AM Electronically Signed By:Tamanna Georges Intervention Information
--- NOTE | 2018-05-23 11:55 | CPEKG ---
Test Reason : OPEN Blood Pressure : / mmHG Vent. Rate : 058 BPM Atrial Rate : 061 BPM P-R Int : 154 ms QRS Dur : 077 ms QT Int : 417 ms P-R-T Axes : 052 033 034 degrees QTc Int : 410 ms Sinus rhythm Low voltage, precordial leads Confirmed by Reji Higgins ([id number]) on 05/23/2018 11:54:30 AM Referred By: Nathaniel Ureña Confirmed By:Reji Higgins
--- NOTE | 2018-05-25 05:14 | GDS ---
[f rep st] DISCHARGE SUMMARY ADMITTING DIAGNOSES: Left hip labral tear, femoral acetabular impingement, trochanteric bursitis. DISCHARGE DIAGNOSES: Left hip labral tear, femoral acetabular impingement, trochanteric bursitis. PROCEDURE PERFORMED: Left hip arthroscopy with labral repair, femoral plasty, acetabular plasty, not chplasty, capsule repair, and trochanteric bursectomy. HOSPITAL COURSE: The patient was admitted on the above date and underwent the above procedure, which she tolerated well. Pain was well controlled postoperatively. The patient has multiple medical pro blems, including history of stroke, as well as DVT, which was the impetus for inpatient observation. She had episodes of orthostasis and mild bradycardia in the 40s and 50s. Blood pressure was consist ently in the 90s over 50s. She denied chest pain or shortness of breath, but due to her past medical history, cardiac consultation was ordered. No intervention was recommended, other than continuous I V fluids. On postoperative day 2, her blood pressure and orthostasis normalized and she cleared phys ical therapy and was cleared for discharge home. DISCHARGE DISPOSITION: Home. CONDITION UPON DISCHARGE: Stable. DISCHARGE INSTRUCTIONS: Twenty-pound foot flat weightbearing to the left lower extremity with a hip abduction orthosis for 2 weeks. Resume her home dose Pradaxa for DVT prophylaxis and follow up in 2 weeks. Begin physical therapy within 1 week of surgery. /[id number]/MODL
== END 2018-05-23 11:00 | disposition home or self-care (01) ==
LOC: FSGY 05:46 → F3N 10:44
PROVIDERS: ADMIT Orthopaedic Surgery; ATTEND Orthopaedic Surgery
DX: I95.81 Postprocedural hypotension (principal); M16.12 Unilateral primary osteoarthritis, left hip; R00.1 Bradycardia, unspecified; I48.92 Unspecified atrial flutter; I82.522 Chronic embolism and thrombosis of left iliac vein; E78.00 Pure hypercholesterolemia, unspecified; Z86.79 Personal history of other diseases of the circulatory system; Z87.891 Personal history of nicotine dependence; Z85.72 Personal history of non-Hodgkin lymphomas; Z91.040 Latex allergy status
CPT/HCPCS: 29914; 29916; 76000; 93005; 97116; 97161; 97165; 97530; 97535; G0378; C1713; J0171; J1100; J1170; J1885; J2175; J2250; J2270; J2370; J2405; J2704; J2710; J2795; J3010; J3370